=== PATIENT | female | born 1985 | race Caucasian/White ===

== ENCOUNTER 2021-01-20 13:11 | Outpatient (CLI) | payer OTHER, SELFPAY | END 2021-01-20 13:12 | disposition home or self-care (01) | LOC: WOUND 13:21 | PROVIDERS: Visit Provider Emergency Medicine | DX: L97.822 Non-pressure chronic ulcer of other part of left lower leg with fat layer exposed (principal) | CPT/HCPCS: 11042; 11045; 87070; 87077; 87176; 87186; 87205; G0463 ==

== ENCOUNTER 2021-01-27 10:37 | Outpatient (CLI) | payer OTHER, SELFPAY | END 2021-01-27 10:38 | disposition home or self-care (01) | LOC: WOUND 10:38 | PROVIDERS: Visit Provider Emergency Medicine | DX: L97.822 Non-pressure chronic ulcer of other part of left lower leg with fat layer exposed (principal) | CPT/HCPCS: 11042; 11045; 99212 ==

== ENCOUNTER 2021-02-03 09:27 | Outpatient (CLI) | payer OTHER, SELFPAY | END 2021-02-03 09:28 | disposition home or self-care (01) | LOC: WOUND 09:28 | PROVIDERS: Visit Provider Emergency Medicine | DX: S80.862A Insect bite (nonvenomous), left lower leg, initial encounter (principal); W57.XXXA Bitten or stung by nonvenomous insect and other nonvenomous arthropods, initial encounter | CPT/HCPCS: 11042; 11045 ==

== ENCOUNTER 2021-02-10 09:12 | Outpatient (CLI) | payer OTHER, SELFPAY | END 2021-02-10 09:13 | disposition home or self-care (01) | LOC: WOUND 09:12 | PROVIDERS: Visit Provider Nurse Practitioner Family | DX: S80.862A Insect bite (nonvenomous), left lower leg, initial encounter (principal); W57.XXXA Bitten or stung by nonvenomous insect and other nonvenomous arthropods, initial encounter | CPT/HCPCS: 11042; 11045 ==

== ENCOUNTER 2021-02-17 08:55 | Outpatient (CLI) | payer OTHER, SELFPAY | END 2021-02-17 08:56 | disposition home or self-care (01) | PROVIDERS: Visit Provider Emergency Medicine | DX: L97.822 Non-pressure chronic ulcer of other part of left lower leg with fat layer exposed (principal) | CPT/HCPCS: 11042; 11045 ==

== ENCOUNTER 2021-02-24 09:06 | Outpatient (CLI) | payer OTHER, SELFPAY | END 2021-02-24 09:07 | disposition home or self-care (01) | LOC: WOUND 09:07 | PROVIDERS: Visit Provider Nurse Practitioner Family | DX: L97.822 Non-pressure chronic ulcer of other part of left lower leg with fat layer exposed (principal) | CPT/HCPCS: 11042; 11045 ==

== ENCOUNTER 2021-03-03 09:01 | Outpatient (CLI) | payer OTHER, SELFPAY | END 2021-03-03 09:02 | disposition home or self-care (01) | LOC: WOUND 09:02 | PROVIDERS: Visit Provider Emergency Medicine | DX: S80.862A Insect bite (nonvenomous), left lower leg, initial encounter (principal); W57.XXXA Bitten or stung by nonvenomous insect and other nonvenomous arthropods, initial encounter | CPT/HCPCS: 11042; 11045 ==

== ENCOUNTER 2021-03-17 09:01 | Outpatient (CLI) | payer OTHER, SELFPAY | END 2021-03-17 09:02 | disposition home or self-care (01) | LOC: WOUND 09:01 | PROVIDERS: Visit Provider Emergency Medicine | DX: S80.862A Insect bite (nonvenomous), left lower leg, initial encounter (principal); W57.XXXA Bitten or stung by nonvenomous insect and other nonvenomous arthropods, initial encounter | CPT/HCPCS: 11042 ==

== ENCOUNTER 2021-03-24 08:57 | Outpatient (CLI) | payer OTHER, SELFPAY | END 2021-03-24 08:58 | disposition home or self-care (01) | LOC: WOUND 08:58 | PROVIDERS: Visit Provider Emergency Medicine | DX: L03.116 Cellulitis of left lower limb (principal); L97.822 Non-pressure chronic ulcer of other part of left lower leg with fat layer exposed | CPT/HCPCS: 11042 ==

== ENCOUNTER 2021-03-31 08:40 | Outpatient (CLI) | payer OTHER, SELFPAY | END 2021-03-31 08:41 | disposition home or self-care (01) | LOC: WOUND 08:40 | PROVIDERS: Visit Provider Emergency Medicine | DX: S80.862A Insect bite (nonvenomous), left lower leg, initial encounter; W57.XXXA Bitten or stung by nonvenomous insect and other nonvenomous arthropods, initial encounter | CPT/HCPCS: 11042 ==

== ENCOUNTER 2021-04-07 08:44 | Outpatient (CLI) | payer OTHER, SELFPAY | END 2021-04-07 08:45 | disposition home or self-care (01) | LOC: WOUND 08:56 | PROVIDERS: Visit Provider Nurse Practitioner Family | DX: I96 Gangrene, not elsewhere classified (principal); L97.822 Non-pressure chronic ulcer of other part of left lower leg with fat layer exposed | CPT/HCPCS: 97597 ==

== ENCOUNTER 2021-04-14 08:45 | Outpatient (CLI) | payer OTHER, SELFPAY | END 2021-04-14 08:46 | disposition home or self-care (01) | LOC: WOUND 08:45 | PROVIDERS: Visit Provider Nurse Practitioner Family | DX: L97.822 Non-pressure chronic ulcer of other part of left lower leg with fat layer exposed (principal) | CPT/HCPCS: 11042 ==

== ENCOUNTER 2021-04-29 08:52 | Outpatient (CLI) | payer OTHER, SELFPAY | END 2021-04-29 08:53 | disposition home or self-care (01) | LOC: WOUND 08:53 | PROVIDERS: Visit Provider Emergency Medicine | DX: Z09 Encounter for follow-up examination after completed treatment for conditions other than malignant neoplasm (principal) | CPT/HCPCS: 99212 ==